=== PATIENT | male | born 1970 | race Caucasian/White ===

== ENCOUNTER 2019-02-09 12:11 | Inpatient (IN) | payer OTHER ==
[2019-02-09 14:07] VITALS: BMI 22.8
--- NOTE | 2019-02-09 14:58 | HP ---
"CIWA Score Nausea/Vomitin-No Nausea/No Vomiting Muscle Tremors: 3 Anxiety: 4-Mod. Anxious/Guarded Agitation: 7-Pacing/Thrashing Paroxysmal Sweats: 3 (Increased facial moisture) Orientation: 0-Oriented Tacttile Disturbances: 1-Very Mild Itch/Numbness Auditory Disturbances: 0-None Visual Disturbances: 0-None Headache: 0-None Present CIWA-Ar Total Score: 18 - Admission Criteria OAS Guidelines: Admission for Medically Managed Detox: Requires at least one of the followin. CIWA greater than 12 2. Seizures within the past 24 hours 3. Delirium tremens within the past 24 hours 4. Hallucinations within the past 24 hours 5. Acute intervention needed for co occurring medical disorder 6. Acute intervention needed for co occurring psychiatric disorder 7. Severe withdrawal that cannot be handled at a lower level of care (continued vomiting, continued diarrhea, abnormal vital signs) requiring intravenous medication and/or fluids 8. Patient presents the following: CIWA greater than 12 Admission Criteria Met: Admission criteria met Admission ROS [facility] - [facility] Chief Complaint: Here for detox. Allergies/Adverse Reactions: Allergies Allergy/AdvReac Type Severity Reaction Status Date / Time haloperidol [From Haldol] Allergy Severe Verified 02/09/19 13:59 risperidone [From Risperdal] Allergy Severe Verified 02/09/19 13:59 banana Allergy Intermediate Hives Verified 02/09/19 13:59 strawberry Allergy Intermediate Itching Verified 02/09/19 13:59 History of Present Illness: 48 yo presents w/ withdrawal symptoms seeking alcohol detox. Hx overdoses - last overdose 2017; Seizure 2018; Blackouts. Heroin use began at age 24. Current using 6 bags/day while on methadone. Nasal. H.E.L.P. MMTP. Currently on Methadone 80 mg daily. Alcohol use began at age 15. Currently drinks 2 +pints/day. Has been drinking current amount x 6 months. Nicotine use began at age 19. Current use 5 cig/day. PMHx: Asthma - last tim2 05/2018; MHHx: Sadness. Last saw Psychiatrist in June 2018. Denies thoughts of harming self or others. SHx: Domiciled. Unemployed. Denies legal issues. Patient Name: Parker Moss Date: 1970 Address: [address] [place] [id number] Sex: Male Rx Written Rx Dispensed Drug Quantity Days Supply Prescriber Name 04/09/2018 04/09/2018 clonazepam 0.5 mg tablet 14 14 Liam Hernandez MD Search Terms: Parker Moss, 1970 Search Date: 02/09/2019 03:23:20 PM States Searched: [place], [place], [place], [place], [place], [place], [place], [place] The Drug Utilization Report below displays the controlled substance prescriptions, if any, that were dispensed in the indicated state(s). The information displayed on this report is compiled from requests submitted to other states' PMPs, and accurately reflects the information as returned by them. Blank nunn indicate data not provided by other state. This report was requested by: Guerda Alexandre | Reference #: [id number] There are no results for the search terms that you entered. Exam Limitations: No Limitations - Ebola screening Have you traveled outside of the country in the last 21 days: No (N) Have you had contact with anyone from an Ebola affected area: No Have you been sick,other than usual withdrawal symptoms: No Do you have a fever: No - Review of Systems Constitutional: Changes in sleep (Difficulty falling and staying asleep), Unintentional Wgt. Loss EENT: reports: Nose Congestion Respiratory: reports: No Symptoms reported Cardiac: reports: No Symptoms Reported GI: reports: No Symptoms Reported : reports: No Symptoms Reported Musculoskeletal: reports: Back Pain (Chronic intermittent (L) lower back. Pain triggers by withdrawal.) Integumentary: reports: No Symptoms Reported Neuro: reports: Numbness (In fingers both hands and feet) Endocrine: reports: Increased Thirst Hematology: reports: No Symptoms Reported Psychiatric: reports: Orientated x3, Agitated, Anxious, Depressed (Sadness. Denies thoughts of harming self or others) Patient History - PPD History Previous Implant?: Yes Documented Results: Negative w/o proof Implanted On Prior [facility] Admission?: Yes PPD to be Administered?: Yes - Smoking Cessation Smoking history: Current every day smoker Have you smoked in the past 12 months: Yes Aproximately how many cigarettes per day: 5 Hx Chewing Tobacco Use: No Initiated information on smoking cessation: Yes 'Breaking Loose' booklet given: 02/09/19 - Substance & Tx. History Hx Alcohol Use: Yes Hx Substance Use: Yes Substance Use Type: Alcohol, Cocaine, Heroin Hx Substance Use Treatment: Yes (detox, rehab, Currently on a MMTP) - Substances abused Alcohol Substance route: Oral Frequency: Daily Amount used: VODKA- 2PINTS/ BEER- 6PK(12OZ Age of first use: 15 Date of last use: 02/09/19 Heroin Substance route: Injection Frequency: 3-6 times per week Amount used: 6BAGS Age of first use: 24 Date of last use: 02/09/19 Cocaine Substance route: Injection Frequency: Daily Amount used: $40 Age of first use: 17 Date of last use: 02/09/19 Admission Physical Exam [facility] - Vital Signs Vital Signs: Vital Signs - 24 hr 02/09/19 14:00 Temperature 96.6 F L Pulse Rate 48 L Respiratory 18 Rate Blood Pressure 168/54 L - Physical General Appearance: Yes: Nourished, Moderate Distress, Tremorous, Irritable, Sweating, Anxious HEENTM: Yes: EOMI, Hearing grossly Normal, Normocephalic, Normal Voice, ZOYA ( Pupils = 2 mm), Pharynx Normal Respiratory: Yes: Lungs Clear, Normal Breath Sounds, No Respiratory Distress Neck: Yes: No masses,lesions,Nodules, Supple Breast: Yes: Breast Exam Deferred Cardiology: Yes: Regular Rhythm, S1, S2, Bradycardia (HR: 54) Abdominal: Yes: Non Tender, Flat, Soft, Increased Bowel Sounds Genitourinary: Yes: Within Normal Limits Back: Yes: Normal Inspection Musculoskeletal: Yes: full range of Motion, Gait Steady Extremities: Yes: Normal Capillary Refill, Tremors Neurological: Yes: document reviewer II-XII NML intact, Fully Oriented, Alert, Motor Strength 5/5 Integumentary: Yes: Normal Color, Warm, Track Pabon (Old track pabon on arms) Lymphatic: Yes: Within Normal Limits - Diagnostic (1) Alcohol dependence with withdrawal, uncomplicated Current Visit: Yes Status: Acute (2) Opioid dependence on agonist therapy Current Visit: Yes Status: Acute (3) Cocaine dependence, uncomplicated Current Visit: Yes Status: Acute (4) Elevated blood pressure reading without diagnosis of hypertension Current Visit: Yes Status: Acute (5) Pruritic condition Current Visit: Yes Status: Acute (6) Tinea pedis Current Visit: Yes Status: Acute Cleared for Admission [facility] - Detox or Rehab [facility] Level of Care: Medically Managed Detox Regimen/Protocol: Zoyaium Claeared for Rehab Admission: No Breathalyzer - Breathalyzer Breathalyzer: 0 Urine Drug Screen - Test Device Lot number: [id number] Expiration date: 10/07/20 - Control Is test valid?: Yes - Results Drug screen NEGATIVE: No Urine drug screen results: ROSHAN-Cocaine, MOP-Opiates, MTD-Methadone Inpatient Rehab Admission - Rehab Decision to Admit Inpatient rehab admission?: No"
[2019-02-09] MEDS ORDERED: MAG HYDROX/AL HYDROX/SIMETH 30 ML UNIT-DOSE CUP PO PRN (15:31)
[2019-02-09] MEDS ORDERED: MELATONIN 5 MG TABLETS PO PRN (15:31)
[2019-02-09] MEDS ORDERED: MAGNESIUM HYDROX 2400MG/30ML ORAL SUSPENSION 30 ML CUP PO PRN (15:31)
[2019-02-09] MEDS ORDERED: NICOTINE POLACRILEX 2 MG GUM BUC PRN (15:31)
[2019-02-09] MEDS ORDERED: MAGNESIUM CITRATE 300 ML BOTTLE PO PRN (15:31)
[2019-02-09] MEDS ORDERED: chlordiazePOXIDE HCL 25 MG CAPSULE PO PRN (15:31)
[2019-02-09] MEDS ORDERED: MENTHOL/PHENOL 1 EACH UD MM PRN (15:31)
[2019-02-09] MEDS ORDERED: BISMUTH SUBSALICYLATE 524 MG/30 ML UD PO PRN (15:31)
[2019-02-09] MEDS ORDERED: ACETAMINOPHEN 325 MG TABLET (FP) PO PRN ×2 (15:31)
[2019-02-09] MEDS ORDERED: VITAMINS A AND D TOPICAL OINTMENT 60 GM TUBE TP PRN (15:35)
[2019-02-09] MEDS: chlordiazePOXIDE HCL 25 MG CAPSULE PO SCH ×2 (18:14→23:16)
[2019-02-09] MEDS: THIAMINE HCL 100 MG TABLET (FP) PO SCH (23:16)
[2019-02-10] MEDS ORDERED: METHADONE HCL 40 MG DISPERSABLE TABLET PO ONE (06:00)
[2019-02-10] MEDS ORDERED: METHADONE HCL 10 MG TABLET PO ONE (06:00)
[2019-02-10] MEDS: chlordiazePOXIDE HCL 25 MG CAPSULE PO SCH ×4 (10:35→22:02)
[2019-02-10] MEDS: PRENATAL VITAMINS W/ FOLIC ACID TABLET (FP) PO SCH (10:37)
--- NOTE | 2019-02-10 11:10 | PN ---
S CIWA - CIWA Score Nausea/Vomitin-Mild Nausea/No Vomiting Muscle Tremors: 4-Moderate,w/Arms Extend Anxiety: 4-Mod. Anxious/Guarded Agitation: 4-Moderately Restless Paroxysmal Sweats: 3 Orientation: 0-Oriented Tacttile Disturbances: 0-None Auditory Disturbances: 0-None Visual Disturbances: 0-None Headache: 0-None Present CIWA-Ar Total Score: 16 [facility] Progress Note (SOAP) Subjective: "Feels sick lots of withdrawal sxs because didn't get my methadone at 6am because I was sleeping but wants it now, I bring my bottle in yesterday." Body stiffness, anxious, back pain Objective: 02/10/19 11:08 Last Vital Signs Temp Pulse Resp BP Pulse Ox 96.4 F L 77 18 115/76 02/10/19 09:27 02/10/19 09:27 02/10/19 09:27 02/10/19 09:27 Admission labs not done (patient refused, reordered in AM) Assessment: 02/10/19 11:11 Withdrawal sxs Plan: Continue detox Encouraged PO water intake Admission labs reordered in AM: CBC, CMP, RPR and UA
[2019-02-10] MEDS ORDERED: FLU VACCINE QUAD 60 MCG/0.5 ML (MDV 19-20) IM ONE (12:00)
[2019-02-10] MEDS: THIAMINE HCL 100 MG TABLET (FP) PO SCH (22:01)
[2019-02-11] MEDS: chlordiazePOXIDE HCL 25 MG CAPSULE PO SCH ×4 (05:37→22:14)
--- NOTE | 2019-02-11 09:51 | PN ---
S CIWA - CIWA Score Nausea/Vomitin-Mild Nausea/No Vomiting Muscle Tremors: 2 Anxiety: 2 Agitation: 2 Paroxysmal Sweats: No Perspiration Orientation: 0-Oriented Tacttile Disturbances: 1-Very Mild Itch/Numbness Auditory Disturbances: 0-None Visual Disturbances: 0-None Headache: 1-Very Mild CIWA-Ar Total Score: 9 [facility] Progress Note (SOAP) Subjective: alert,irritable,anxious,interrupted sleep,tremor Objective: 02/11/19 09:49 Vital Signs Temperature 97.5 F L 02/11/19 09:14 Pulse Rate 70 02/11/19 09:14 Respiratory Rate 16 02/11/19 09:14 Blood Pressure 129/78 02/11/19 09:14 O2 Sat by Pulse Oximetry (%) 02/11/19 09:50 labs pending Assessment: 02/11/19 09:50 withdrawal symptom Plan: continue detox librium regimen
[2019-02-11 09:57] LABS: BASO % 0.7 % (0-2.0); EOS % 4.3 % (0-4.5); HEMATOCRIT 41.9 % (35.4-49); HEMOGLOBIN 14.1 GM/dL (11.7-16.9); LYMPH % 35.7 % (8-40); MCH 28.9 pg (25.7-33.7); MCHC 33.6 g/dl (32.0-35.9); MEAN PLT VOLUME 9.4 fl (7.5-11.1); MONO % 7.8 % (3.8-10.2); NEUT % 51.5 % (42.8-82.8); PLATELET COUNT 164 K/MM3 (134-434); RBC 4.87 M/mm3 (4.00-5.60); RDW 13.9 % (11.9-15.9); WHITE BLOOD COUNT 5.7 K/mm3 (4.0-10.0)
[2019-02-11 10:04] LABS: BILIRUBIN,TOTAL 0.2 mg/dL (0.2-1); BLOOD UREA NITROGEN 18.1 mg/dL (7-18); CALCIUM 8.2 mg/dL (8.5-10.1); CREATININE 0.8 mg/dL (0.55-1.3); TOT PROT 5.6 g/dl (6.4-8.2)
--- NOTE | 2019-02-11 11:04 | EKG ---
Test Reason : Blood Pressure : / mmHG Vent. Rate : 050 BPM Atrial Rate : 050 BPM P-R Int : 112 ms QRS Dur : 096 ms QT Int : 546 ms P-R-T Axes : 027 099 093 degrees QTc Int : 497 ms SINUS BRADYCARDIA WITH SINUS ARRHYTHMIA T WAVE ABNORMALITY, CONSIDER ANTERIOR ISCHEMIA PROLONGED QT ABNORMAL ECG NO PREVIOUS ECGS AVAILABLE Confirmed by HEBER NATION MD ([id number]) on 02/11/2019 11:04:08 AM Referred By: Confirmed By:HEBER NATION MD
[2019-02-11] MEDS: PRENATAL VITAMINS W/ FOLIC ACID TABLET (FP) PO SCH (11:09)
[2019-02-11] MEDS: METHADONE HCL 40 MG DISPERSABLE TABLET PO SCH (11:10)
[2019-02-11] MEDS: METHOCARBAMOL 500 MG TABLET PO PRN (19:41)
[2019-02-11] MEDS: THIAMINE HCL 100 MG TABLET (FP) PO SCH (22:14)
[2019-02-11] MEDS: IBUPROFEN 400 MG TABLET (FP) PO PRN (23:48)
[2019-02-12] MEDS ORDERED: chlordiazePOXIDE HCL 10 MG CAPSULE PO PRN
[2019-02-12] MEDS: chlordiazePOXIDE HCL 10 MG CAPSULE PO SCH ×4 (05:31→22:15)
[2019-02-12 09:34] LABS: PH,URINE 5.5 (5.0-8.0); URINE APPEARANCE CLEAR; URINE BILIRUBIN NEGATIVE (NEGATIVE); URINE COLOR YELLOW; URINE GLUCOSE (UA) NEGATIVE (NEGATIVE); URINE KETONE NEGATIVE (NEGATIVE); URINE LEUK ESTERASE NEGATIVE (NEGATIVE); URINE NITRITE NEGATIVE (NEGATIVE); URINE PROTEIN NEGATIVE (NEGATIVE); URINE UROBILINOGEN 0.2 mg/dL (0.2-1.0)
[2019-02-12] MEDS: PRENATAL VITAMINS W/ FOLIC ACID TABLET (FP) PO SCH (10:17)
[2019-02-12] MEDS: METHADONE HCL 40 MG DISPERSABLE TABLET PO SCH (10:18)
--- NOTE | 2019-02-12 11:19 | PN ---
S CIWA - CIWA Score Nausea/Vomitin-Mild Nausea/No Vomiting Muscle Tremors: 2 Anxiety: 2 Agitation: 2 Paroxysmal Sweats: No Perspiration Orientation: 0-Oriented Tacttile Disturbances: 1-Very Mild Itch/Numbness Auditory Disturbances: 0-None Visual Disturbances: 0-None Headache: 2-Mild CIWA-Ar Total Score: 10 BHS Progress Note (SOAP) Subjective: alert,irritable,anxious,interrupted sleep,pain in the body Objective: 02/12/19 11:18 Vital Signs Temperature 97.8 F 02/12/19 09:15 Pulse Rate 70 02/12/19 09:15 Respiratory Rate 18 02/12/19 09:15 Blood Pressure 152/63 02/12/19 09:15 O2 Sat by Pulse Oximetry (%) Assessment: 02/12/19 11:18 withdrawal symptom Plan: continue detox,librium regimen
--- NOTE | 2019-02-12 15:56 | PN ---
[facility] Progress Note Note: patient involved in verbal altercation with other client,securities present, deepti o and m supervisor present,counselor,grisel,conference called, all agree to contract with the patient,patient agreed and will comply with unit rule close monitoring
[2019-02-12] MEDS: THIAMINE HCL 100 MG TABLET (FP) PO SCH (22:14)
[2019-02-13] MEDS: chlordiazePOXIDE HCL 10 MG CAPSULE PO SCH ×2 (05:34→18:15)
--- NOTE | 2019-02-13 09:56 | PN ---
[facility] CIWA - CIWA Score Nausea/Vomitin-Mild Nausea/No Vomiting Muscle Tremors: 1-None Visible, but [place] Anxiety: 2 Agitation: 2 Paroxysmal Sweats: No Perspiration Orientation: 0-Oriented Tacttile Disturbances: 0-None Auditory Disturbances: 0-None Visual Disturbances: 0-None Headache: 1-Very Mild CIWA-Ar Total Score: 7 S Progress Note (SOAP) Subjective: alert,irritable,anxious,interrupted sleep Objective: 02/13/19 09:55 Vital Signs Temperature 97.8 F 02/13/19 09:13 Pulse Rate 68 02/13/19 09:13 Respiratory Rate 18 02/13/19 09:13 Blood Pressure 130/71 02/13/19 09:13 O2 Sat by Pulse Oximetry (%) Assessment: 02/13/19 09:55 withdrawal symptom Plan: continue detox,discharge in am
[2019-02-13] MEDS: PRENATAL VITAMINS W/ FOLIC ACID TABLET (FP) PO SCH (10:53)
[2019-02-13] MEDS: METHADONE HCL 40 MG DISPERSABLE TABLET PO SCH (10:53)
[2019-02-13] MEDS: IBUPROFEN 400 MG TABLET (FP) PO PRN (14:17)
[2019-02-13] MEDS: THIAMINE HCL 100 MG TABLET (FP) PO SCH (22:19)
[2019-02-13] MEDS: TOLNAFTATE 1% CREAM 15 GM TUBE TP SCH (22:21)
[2019-02-14] MEDS: IBUPROFEN 400 MG TABLET (FP) PO PRN (01:19)
[2019-02-14] MEDS: METHOCARBAMOL 500 MG TABLET PO PRN (01:19)
[2019-02-14] MEDS ORDERED: chlordiazePOXIDE HCL 10 MG CAPSULE PO ONE (05:00)
--- NOTE | 2019-02-14 08:53 | DS ---
[facility] Detox Discharge Summary Admission Date: 02/09/19 Discharge Date: 02/14/19 - History Present History: Alcohol Dependence, Cocaine Dependence - Physical Exam Results Vital Signs: Vital Signs Temperature 97.9 F 02/13/19 20:58 Pulse Rate 50 L 02/13/19 20:58 Respiratory Rate 18 02/14/19 00:30 Blood Pressure 104/65 02/13/19 20:58 O2 Sat by Pulse Oximetry (%) Pertinent Admission Physical Exam Findings: pt arrived in withdrawals Vital Signs Temperature 97.9 F 02/13/19 20:58 Pulse Rate 50 L 02/13/19 20:58 Respiratory Rate 18 02/14/19 00:30 Blood Pressure 104/65 02/13/19 20:58 O2 Sat by Pulse Oximetry (%) Laboratory Tests 02/11/19 02/11/19 02/11/19 08:00 08:00 08:00 WBC 5.7 RBC 4.87 Hgb 14.1 Hct 41.9 MCV 86.0 MCH 28.9 MCHC 33.6 RDW 13.9 Plt Count 164 MPV 9.4 Absolute Neuts (auto) 3.0 Neutrophils % 51.5 Lymphocytes % 35.7 Monocytes % 7.8 Eosinophils % 4.3 Basophils % 0.7 Nucleated RBC % 0 Sodium 140 Potassium 4.0 Chloride 109 H Carbon Dioxide 28 Anion Gap 4 L BUN 18.1 H Creatinine 0.8 Est GFR (CKD-EPI)AfAm 123.29 Est GFR (CKD-EPI)NonAf 106.38 Random Glucose 104 Calcium 8.2 L Total Bilirubin 0.2 AST 15 ALT 24 Alkaline Phosphatase 102 Total Protein 5.6 L Albumin 3.0 L Urine Color Urine Appearance Urine pH Ur Specific [place] Urine Protein Urine Glucose (UA) Urine Ketones Urine Blood Urine Nitrite Urine Bilirubin Urine Urobilinogen Ur Leukocyte Esterase RPR Titer Nonreactive 02/12/19 08:00 WBC RBC Hgb Hct MCV MCH MCHC RDW Plt Count MPV Absolute Neuts (auto) Neutrophils % Lymphocytes % Monocytes % Eosinophils % Basophils % Nucleated RBC % Sodium Potassium Chloride Carbon Dioxide Anion Gap BUN Creatinine Est GFR (CKD-EPI)AfAm Est GFR (CKD-EPI)NonAf Random Glucose Calcium Total Bilirubin AST ALT Alkaline Phosphatase Total Protein Albumin Urine Color Yellow Urine Appearance Clear Urine pH 5.5 Ur Specific [place] 1.029 Urine Protein Negative Urine Glucose (UA) Negative Urine Ketones Negative Urine Blood Negative Urine Nitrite Negative Urine Bilirubin Negative Urine Urobilinogen 0.2 Ur Leukocyte Esterase Negative RPR Titer today pt is aaox3 ambulating no acute distress no s/s of withdrawals - Treatment Hospital Course: Detox Protocol Followed, Detoxed Safely, Responded well, Discharged Condition Good, Rehab Referral Accepted Patient has Accepted a Rehab Referral to: pt referred to inpatient rehab; [facility] - Medication Discharge Medications: Ambulatory Orders Methadone [Dolophine -] 80 mg PO DAILY 02/09/19 - Diagnosis (1) Alcohol dependence with withdrawal, uncomplicated Current Visit: Yes Status: Chronic (2) Cocaine dependence, uncomplicated Current Visit: Yes Status: Chronic (3) Elevated blood pressure reading without diagnosis of hypertension Current Visit: Yes Status: Acute - AMA Did Patient Leave Against Medical Advice: No
[2019-02-14] MEDS: METHADONE HCL 40 MG DISPERSABLE TABLET PO SCH (09:42)
[2019-02-14] MEDS: PRENATAL VITAMINS W/ FOLIC ACID TABLET (FP) PO SCH (09:43)
[2019-02-14] MEDS: TOLNAFTATE 1% CREAM 15 GM TUBE TP SCH (09:43)
[2019-02-14 10:03] VITALS: BP 99/67; PULSE 94; TEMP 99.9
== END 2019-02-14 11:32 | disposition other institution (70) | DRG 773 ==
LOC: YASAS 12:11 → Y6N 15:52
PROVIDERS: ADMIT Allergy & Immunology; ATTEND Allergy & Immunology
PROC: HZ2ZZZZ Detoxification Services for Substance Abuse Treatment (ICD-10-PCS; principal; 2019-02-09)
DX: F10.230 Alcohol dependence with withdrawal, uncomplicated (principal); F11.20 Opioid dependence, uncomplicated; F14.20 Cocaine dependence, uncomplicated; F17.210 Nicotine dependence, cigarettes, uncomplicated; B35.3 Tinea pedis; L29.8 Other pruritus; M54.5 Low back pain; G89.29 Other chronic pain; R03.0 Elevated blood-pressure reading, without diagnosis of hypertension; Z88.8 Allergy status to other drugs, medicaments and biological substances; Z91.018 Allergy to other foods; Z59.0 Homelessness
CPT/HCPCS: 36415; 80053; 81003; 85025; 86593; 93005; 93010

== ENCOUNTER 2019-02-14 11:38 | Inpatient (IN) | payer OTHER ==
[2019-02-14] MEDS ORDERED: MAGNESIUM HYDROX 2400MG/30ML ORAL SUSPENSION 30 ML CUP PO PRN (11:56)
[2019-02-14] MEDS ORDERED: MENTHOL/PHENOL 1 EACH UD MM PRN (11:56)
[2019-02-14] MEDS ORDERED: ACETAMINOPHEN 325 MG TABLET (FP) PO PRN (11:56)
[2019-02-14] MEDS ORDERED: MAG HYDROX/AL HYDROX/SIMETH 30 ML UNIT-DOSE CUP PO PRN (11:56)
[2019-02-14] MEDS ORDERED: P-EPHED 60MG/TRIPROLIDI 2.5MG TABLET PO PRN (11:56)
[2019-02-14] MEDS ORDERED: guaiFENesin 200 MG/10 ML 10 ML UNIT-DOSE CUPS PO PRN (11:56)
[2019-02-14] MEDS ORDERED: LOPERAMIDE HCL 2 MG CAPSULE PO PRN (11:56)
[2019-02-14] MEDS ORDERED: MAGNESIUM CITRATE 300 ML BOTTLE PO PRN (11:56)
[2019-02-14] MEDS ORDERED: IBUPROFEN 400 MG TABLET (FP) PO PRN (11:56)
--- NOTE | 2019-02-14 11:58 | HP ---
[facility] Rehab Assess/Revision - Admission History Admitted to Rehab from: [facility] Date of Admission to Rehab: 02/14/19 - Findings Detox History & Physical reviewed: Yes Concur with findings: Yes Inpatient Rehab Admission - Rehab Decision to Admit Inpatient rehab admission?: Yes - Initial Determination Are CD services needed?: Yes Free of communicable disease: Yes Not in need of hospitalization: Yes - Rehab Admission Criteria Previous failed treatment: Yes Poor recovery environment: Yes Comorbidities: Yes Lacks judgement: Yes Patient is meeting Inpatient Rehab admission criteria:: Yes
[2019-02-14] MEDS ORDERED: PT OWN MED DRAWER 7, Y5N ONE (16:45)
[2019-02-14] MEDS: MELATONIN 5 MG TABLETS PO PRN (21:19)
[2019-02-14] MEDS: THIAMINE HCL 100 MG TABLET (FP) PO SCH (21:19)
[2019-02-15] MEDS: METHADONE HCL 40 MG DISPERSABLE TABLET PO SCH (06:38)
[2019-02-15] MEDS: PRENATAL VITAMINS W/ FOLIC ACID TABLET (FP) PO SCH (10:37)
[2019-02-15] MEDS ORDERED: PNEUMOCOCCAL 23 VACCINE 0.5 ML VIAL IM ONE (12:00)
[2019-02-15] MEDS ORDERED: FLU VACCINE QUAD 60 MCG/0.5 ML (MDV 19-20) IM ONE (12:00)
[2019-02-15] MEDS ORDERED: PNEUMOC 13-VAL CONJ-DIP CRM/PF 0.5 ML DISP.SYRIN IM ONE (12:00)
[2019-02-15] MEDS: CYCLOBENZAPRINE HCL 5 MG TABLET PO SCH ×2 (16:42→21:31)
[2019-02-15] MEDS: TOLNAFTATE 1% CREAM 15 GM TUBE TP SCH (21:31)
[2019-02-15] MEDS: MELATONIN 5 MG TABLETS PO PRN (21:31)
[2019-02-15] MEDS: THIAMINE HCL 100 MG TABLET (FP) PO SCH (21:32)
[2019-02-16] MEDS: CYCLOBENZAPRINE HCL 5 MG TABLET PO SCH ×3 (06:31→22:09)
[2019-02-16] MEDS: METHADONE HCL 40 MG DISPERSABLE TABLET PO SCH (06:31)
[2019-02-16] MEDS: PRENATAL VITAMINS W/ FOLIC ACID TABLET (FP) PO SCH (10:25)
[2019-02-16] MEDS: TOLNAFTATE 1% CREAM 15 GM TUBE TP SCH ×2 (10:25→22:09)
[2019-02-16] MEDS ORDERED: FLU VACC QS2019-20(6MOS UP)/PF 60 MCG/0.5 ML SYRINGE IM ONE (12:00)
[2019-02-16] MEDS ORDERED: PNEUMOCOCCAL 23 VACCINE 0.5 ML VIAL IM ONE (12:00)
[2019-02-16] MEDS ORDERED: FLU VACCINE QUAD 60 MCG/0.5 ML (MDV 19-20) IM ONE (12:44)
[2019-02-16] MEDS: THIAMINE HCL 100 MG TABLET (FP) PO SCH (22:09)
[2019-02-16] MEDS ORDERED: PT OWN MED DRAWER 7, Y5N ONE (22:10)
[2019-02-17] MEDS: METHADONE HCL 40 MG DISPERSABLE TABLET PO SCH (06:07)
[2019-02-17] MEDS: CYCLOBENZAPRINE HCL 5 MG TABLET PO SCH ×3 (06:07→21:45)
[2019-02-17] MEDS: PRENATAL VITAMINS W/ FOLIC ACID TABLET (FP) PO SCH (10:30)
[2019-02-17] MEDS: TOLNAFTATE 1% CREAM 15 GM TUBE TP SCH ×2 (10:30→21:45)
[2019-02-17] MEDS: THIAMINE HCL 100 MG TABLET (FP) PO SCH (21:45)
[2019-02-17] MEDS ORDERED: PT OWN MED DRAWER 7, Y5N ONE (21:59)
[2019-02-18] MEDS: CYCLOBENZAPRINE HCL 5 MG TABLET PO SCH ×3 (06:33→21:18)
[2019-02-18] MEDS: METHADONE HCL 40 MG DISPERSABLE TABLET PO SCH (06:33)
[2019-02-18] MEDS: PRENATAL VITAMINS W/ FOLIC ACID TABLET (FP) PO SCH (10:32)
[2019-02-18] MEDS: TOLNAFTATE 1% CREAM 15 GM TUBE TP SCH ×2 (14:26→21:18)
[2019-02-18] MEDS: MELATONIN 5 MG TABLETS PO PRN (21:18)
[2019-02-18] MEDS: THIAMINE HCL 100 MG TABLET (FP) PO SCH (21:18)
[2019-02-19] MEDS: CYCLOBENZAPRINE HCL 5 MG TABLET PO SCH ×3 (05:52→21:41)
[2019-02-19] MEDS: METHADONE HCL 40 MG DISPERSABLE TABLET PO SCH (05:53)
[2019-02-19] MEDS: PRENATAL VITAMINS W/ FOLIC ACID TABLET (FP) PO SCH (09:31)
[2019-02-19] MEDS: TOLNAFTATE 1% CREAM 15 GM TUBE TP SCH ×2 (09:32→21:41)
[2019-02-19] MEDS: MELATONIN 5 MG TABLETS PO PRN (21:41)
[2019-02-19] MEDS: THIAMINE HCL 100 MG TABLET (FP) PO SCH (21:41)
[2019-02-20] MEDS: METHADONE HCL 40 MG DISPERSABLE TABLET PO SCH (05:37)
[2019-02-20] MEDS: CYCLOBENZAPRINE HCL 5 MG TABLET PO SCH ×3 (05:37→21:18)
[2019-02-20] MEDS ORDERED: ASPIRIN 81 MG CHEWABLE TABLETS PO ONE (06:22)
[2019-02-20 06:23] VITALS: TEMP 98.2
--- NOTE | 2019-02-20 06:27 | PN ---
[facility] Progress Note Note: Patient complains of chest pain. He reports that he has had similar pain in the past. Vital Signs Temperature 98.2 F 02/20/19 06:23 Pulse Rate 62 02/20/19 06:23 Respiratory Rate 18 02/20/19 06:23 Blood Pressure 111/63 02/20/19 06:23 O2 Sat by Pulse Oximetry (%) Action: Aspirin 81mg tablet 1 tablet oral stat EKG stat
[2019-02-20] MEDS: PRENATAL VITAMINS W/ FOLIC ACID TABLET (FP) PO SCH (09:36)
[2019-02-20] MEDS: TOLNAFTATE 1% CREAM 15 GM TUBE TP SCH ×2 (09:36→21:18)
[2019-02-20] MEDS: MELATONIN 5 MG TABLETS PO PRN (21:18)
[2019-02-20] MEDS: THIAMINE HCL 100 MG TABLET (FP) PO SCH (21:18)
[2019-02-21] MEDS: CYCLOBENZAPRINE HCL 5 MG TABLET PO SCH (05:45)
[2019-02-21] MEDS ORDERED: METHADONE HCL 40 MG DISPERSABLE TABLET PO SCH (06:00)
[2019-02-21 07:00] VITALS: BP 131/68; PULSE 61
--- NOTE | 2019-02-21 08:39 | DS ---
[facility] Rehab Discharge Summary - [facility] Rehab Discharge Summary Admission Date: 02/14/19 Discharge Date: 02/21/19 - History Present History: Alcohol dependence, Cocaine dependence, MMTP Pertinent Past History: Hx overdoses - last overdose 2016; Seizure 2018; Blackouts. Heroin use began at age 24. Current using 6 bags/day while on methadone. Nasal. H.E.L.P. MMTP. Currently on Methadone 80 mg daily. Alcohol use began at age 15. Currently drinks 2 +pints/day. Has been drinking current amount x 6 months. Nicotine use began at age 19. Current use 5 cig/day. PMHx: Asthma - last tim2 05/2018; MHHx: Sadness. Last saw Psychiatrist in June 2018. Denies thoughts of harming self or others. SHx: Domiciled. Unemployed. Denies legal issues. - Discharge Physical Exam Vital Signs: Vital Signs Temperature 98.2 F 02/21/19 06:59 Pulse Rate 61 02/21/19 06:59 Respiratory Rate 18 02/21/19 06:59 Blood Pressure 131/68 02/21/19 06:59 O2 Sat by Pulse Oximetry (%) Pertinent Admission Physical Exam Findings: Physical General Appearance: no apparent distress HEENTM: Normocephalic, Respiratory:Lungs Clear, Neck: Supple Cardiology: S1, S2, Abdominal: Non Tender, Flat, Soft,+Bowel Sounds Musculoskeletal:Full range of Motion, Gait Steady Neurological:intelligence consultant II-XII NML intact, - Treatment Discharge Condition: Outpatient referral accepted (Pt will go to [facility]. Medically stable for discharge.) Hospital Course: patient attended groups. Had 1:1 meetings with counselor. Patient was adherent to the treatment plan and medication regimen. Mr. Moss had no acute or emergent medical issues while in rehab. - Medication Discharge Medications: Ambulatory Orders Methadone [Dolophine -] 80 mg PO DAILY 02/09/19 - Medication-Assisted Treatment (MAT) Medication-Assisted Treatment (MAT): Yes MAT Follow-up Referral: MMTP - Discharge Instructions Diet, activity, other medical instructions: Diet: as tolerated Activity: as tolerated Other medical instructions: Please follow up with aftercare referral to [facility]. - Diagnosis (1) Alcohol dependence with withdrawal, uncomplicated Current Visit: No Status: Chronic (2) Cocaine dependence, uncomplicated Current Visit: No Status: Chronic - AMA Did Patient Leave Against Medical Advice: No
--- NOTE | 2019-02-21 12:43 | EKG ---
Test Reason : Blood Pressure : / mmHG Vent. Rate : 058 BPM Atrial Rate : 058 BPM P-R Int : 128 ms QRS Dur : 102 ms QT Int : 454 ms P-R-T Axes : 069 097 018 degrees QTc Int : 445 ms SINUS BRADYCARDIA POSSIBLE LEFT ATRIAL ENLARGEMENT RIGHTWARD AXIS BORDERLINE ECG WHEN COMPARED WITH ECG OF 09-FEB-2019 16:00, NONSPECIFIC T WAVE ABNORMALITY NOW EVIDENT IN INFERIOR LEADS T WAVE INVERSION NO LONGER EVIDENT IN ANTERIOR LEADS QT HAS SHORTENED Confirmed by SELIN JONES MD ([id number]) on 02/21/2019 12:43:11 PM Referred By: Confirmed By:SELIN JONES MD
== END 2019-02-21 09:05 | disposition home or self-care (01) | DRG 772 ==
LOC: YASAS 11:38 → Y3W 11:39
PROVIDERS: ADMIT Neuromusculoskeletal Medicine & OMM; ATTEND Neuromusculoskeletal Medicine & OMM
PROC: HZ42ZZZ Group Counseling for Substance Abuse Treatment, Cognitive-Behavioral (ICD-10-PCS; principal; 2019-02-14)
DX: F10.20 Alcohol dependence, uncomplicated (principal); F11.20 Opioid dependence, uncomplicated; F14.20 Cocaine dependence, uncomplicated; F17.210 Nicotine dependence, cigarettes, uncomplicated; R07.9 Chest pain, unspecified; Z88.8 Allergy status to other drugs, medicaments and biological substances; Z91.018 Allergy to other foods; Z59.0 Homelessness
CPT/HCPCS: 36415; 87389; 90686; 90732; 93005; 93010; G0009; Q2036

== ENCOUNTER 2023-03-16 14:59 | Inpatient (IN) | payer OTHER ==
[2023-03-16 15:51] VITALS: BMI 24.3
[2023-03-16] MEDS ORDERED: NICOTINE POLACRILEX 2 MG GUM BUC PRN (16:55)
[2023-03-16] MEDS ORDERED: LOPERAMIDE HCL 2 MG CAPSULE PO PRN (16:55)
[2023-03-16] MEDS ORDERED: BENZOCAINE/MENTHOL (CHLORASEPTIC ) LOZENGE MM PRN (16:55)
[2023-03-16] MEDS ORDERED: MAG HYDROX/AL HYDROX/SIMETH 30 ML UNIT-DOSE CUP PO PRN (16:55)
[2023-03-16] MEDS ORDERED: guaiFENesin 600 MG TABLET.ER (FP) PO PRN (16:55)
[2023-03-16] MEDS ORDERED: IBUPROFEN 400 MG TABLET (FP) PO PRN (16:55)
[2023-03-16] MEDS ORDERED: POLYETHYLENE GLYCOL (HEALTHYLAX) 3350 17 GM PACKET PO PRN (16:55)
[2023-03-16] MEDS ORDERED: MAGNESIUM HYDROX 2400MG/30ML ORAL SUSPENSION 30 ML CUP PO PRN (16:55)
[2023-03-16] MEDS ORDERED: NALOXONE HCL 0.4 MG/ML VIAL IM PRN (16:55)
[2023-03-16] MEDS ORDERED: NALOXONE HCL (KLOXXADO) 8 MG SPRAY NS PRN (16:55)
[2023-03-16] MEDS ORDERED: COLLOIDAL OATMEAL 1 BAR EACH TP PRN (16:55)
[2023-03-16] MEDS ORDERED: BENZONATATE 200 MG CAPSULE PO PRN (16:55)
[2023-03-16] MEDS ORDERED: ACETAMINOPHEN 325 MG TABLET (FP) PO PRN (16:55)
[2023-03-16] MEDS ORDERED: hydrOXYzine PAMOATE 25 MG CAPSULE (FP) PO PRN (16:55)
[2023-03-16] MEDS ORDERED: TUBERCULIN PPD 5 TU/0.1ML SYRINGE (IN PATIENT USE ONLY) ID ONE (20:58)
[2023-03-16] MEDS: MELATONIN 5 MG TABLETS PO SCH (21:26)
[2023-03-16] MEDS: THIAMINE HCL 100 MG TABLET (FP) PO SCH (21:26)
[2023-03-16] MEDS ORDERED: TUBERCULIN PPD 5 TU/0.1ML VIAL ID ONE (21:30)
[2023-03-17] MEDS: PRENATAL VITAMINS W/ FOLIC ACID TABLET (FP) PO SCH (09:02)
[2023-03-17] MEDS ORDERED: methaDONE HCL 10 MG TABLET PO ONE (10:00)
[2023-03-17] MEDS ORDERED: methaDONE 40 MG, methaDONE 20 MG PO ONE (10:00)
[2023-03-17 10:29] LABS: CHLORIDE 105 mmol/L (98-107); SODIUM 139 mmol/L (136-145)
[2023-03-17 10:33] LABS: HEMATOCRIT 42.5 % (35.4-49); HEMOGLOBIN 14.1 GM/dL (11.7-16.9); MCH 28.8 pg (25.7-33.7); MCHC 33.2 g/dl (32.0-35.9); MEAN CELL VOLUME 86.6 fl (80-96); MEAN PLT VOLUME 8.9 fl (7.5-11.1); PLATELET COUNT 183 10^3/uL (134-434); RBC 4.91 M/mm3 (4.00-5.60); RDW 14.3 % (11.9-15.9); WHITE BLOOD COUNT 6.6 K/mm3 (4.0-10.0)
[2023-03-17 10:35] LABS: ALBUMIN 3.2 g/dl (3.4-5.0); ANION GAP 7 mmol/L (4-13); CALCIUM 8.6 mg/dL (8.5-10.1); CO2 28 mmol/L (21-32)
[2023-03-17 10:36] LABS: BLOOD UREA NITROGEN 16.9 mg/dL (7-18); GLUCOSE,RANDOM 142 mg/dL (74-106)
[2023-03-17 10:38] LABS: CREATININE 0.9 mg/dL (0.55-1.3); SGOT/AST 25 U/L (15-37); SGPT/ALT 30 U/L (13-61)
[2023-03-17 10:39] LABS: BILIRUBIN,TOTAL 0.7 mg/dL (0.2-1); TOT PROT 6.8 g/dl (6.4-8.2)
[2023-03-17 10:41] LABS: ALK PHOS 85 U/L (45-117)
[2023-03-17] MEDS: amLODIPine BESYLATE 10 MG TABLET (FP) PO SCH (18:31)
[2023-03-17] MEDS: GABAPENTIN 300 MG CAPSULE PO SCH (18:31)
[2023-03-17] MEDS: OLANZapine 5 MG TABLET PO SCH (21:07)
[2023-03-17] MEDS: THIAMINE HCL 100 MG TABLET (FP) PO SCH (21:08)
[2023-03-17] MEDS: MELATONIN 5 MG TABLETS PO SCH (21:08)
[2023-03-17] MEDS ORDERED: SUVOREXANT 5 MG TABLET PO PRN (22:00)
[2023-03-18] MEDS: methaDONE 40 MG, methaDONE 20 MG PO SCH (07:17)
[2023-03-18] MEDS: GABAPENTIN 300 MG CAPSULE PO SCH (10:00)
[2023-03-18] MEDS: PRENATAL VITAMINS W/ FOLIC ACID TABLET (FP) PO SCH (10:00)
[2023-03-18] MEDS: amLODIPine BESYLATE 10 MG TABLET (FP) PO SCH (10:01)
[2023-03-18] MEDS: OLANZapine 5 MG TABLET PO SCH (21:19)
[2023-03-18] MEDS: MELATONIN 5 MG TABLETS PO SCH (21:19)
[2023-03-18] MEDS: THIAMINE HCL 100 MG TABLET (FP) PO SCH (21:19)
[2023-03-19] MEDS: methaDONE 40 MG, methaDONE 20 MG PO SCH (05:56)
[2023-03-19] MEDS: GABAPENTIN 300 MG CAPSULE PO SCH (09:56)
[2023-03-19] MEDS: amLODIPine BESYLATE 10 MG TABLET (FP) PO SCH (09:56)
[2023-03-19] MEDS: PRENATAL VITAMINS W/ FOLIC ACID TABLET (FP) PO SCH (09:56)
[2023-03-19] MEDS: THIAMINE HCL 100 MG TABLET (FP) PO SCH (21:02)
[2023-03-19] MEDS: MELATONIN 5 MG TABLETS PO SCH (21:02)
[2023-03-19] MEDS: OLANZapine 5 MG TABLET PO SCH (21:02)
[2023-03-19] MEDS ORDERED: SUVOREXANT 5 MG TABLET PO PRN (22:00)
[2023-03-20] MEDS ORDERED: methaDONE HCL 10 MG TABLET PO SCH (06:00)
[2023-03-20] MEDS ORDERED: methaDONE 40 MG, methaDONE 20 MG PO SCH (06:00)
[2023-03-20] MEDS: methaDONE 40 MG, methaDONE 20 MG PO SCH (06:08)
[2023-03-20] MEDS: PRENATAL VITAMINS W/ FOLIC ACID TABLET (FP) PO SCH (09:44)
[2023-03-20] MEDS: amLODIPine BESYLATE 10 MG TABLET (FP) PO SCH (09:45)
[2023-03-20] MEDS: GABAPENTIN 300 MG CAPSULE PO SCH (09:45)
[2023-03-20] MEDS: MELATONIN 5 MG TABLETS PO SCH (21:20)
[2023-03-20] MEDS: THIAMINE HCL 100 MG TABLET (FP) PO SCH (21:20)
[2023-03-20] MEDS: OLANZapine 5 MG TABLET PO SCH (21:21)
[2023-03-21] MEDS: methaDONE 40 MG, methaDONE 20 MG PO SCH (06:15)
[2023-03-21] MEDS: amLODIPine BESYLATE 10 MG TABLET (FP) PO SCH (10:11)
[2023-03-21] MEDS: PRENATAL VITAMINS W/ FOLIC ACID TABLET (FP) PO SCH (10:11)
[2023-03-21] MEDS: GABAPENTIN 300 MG CAPSULE PO SCH (10:11)
[2023-03-21] MEDS: MELATONIN 5 MG TABLETS PO SCH (22:55)
[2023-03-21] MEDS: THIAMINE HCL 100 MG TABLET (FP) PO SCH (22:55)
[2023-03-21] MEDS: OLANZapine 5 MG TABLET PO SCH (22:55)
[2023-03-22] MEDS: methaDONE 40 MG, methaDONE 20 MG PO SCH (06:02)
[2023-03-22] MEDS: amLODIPine BESYLATE 10 MG TABLET (FP) PO SCH (09:36)
[2023-03-22] MEDS: PRENATAL VITAMINS W/ FOLIC ACID TABLET (FP) PO SCH (09:36)
[2023-03-22] MEDS: GABAPENTIN 300 MG CAPSULE PO SCH (09:36)
[2023-03-22] MEDS: OLANZapine 5 MG TABLET PO SCH (21:21)
[2023-03-22] MEDS: THIAMINE HCL 100 MG TABLET (FP) PO SCH (21:21)
[2023-03-22] MEDS: MELATONIN 5 MG TABLETS PO SCH (21:21)
[2023-03-23] MEDS: methaDONE 40 MG, methaDONE 20 MG PO SCH (05:59)
[2023-03-23] MEDS: amLODIPine BESYLATE 10 MG TABLET (FP) PO SCH (10:11)
[2023-03-23] MEDS: GABAPENTIN 300 MG CAPSULE PO SCH (10:11)
[2023-03-23] MEDS: PRENATAL VITAMINS W/ FOLIC ACID TABLET (FP) PO SCH (10:11)
[2023-03-23] MEDS: THIAMINE HCL 100 MG TABLET (FP) PO SCH (21:30)
[2023-03-23] MEDS: MELATONIN 5 MG TABLETS PO SCH (21:30)
[2023-03-23] MEDS: OLANZapine 5 MG TABLET PO SCH (21:30)
[2023-03-24] MEDS: methaDONE 40 MG, methaDONE 20 MG PO SCH (06:05)
[2023-03-24] MEDS: GABAPENTIN 300 MG CAPSULE PO SCH (09:33)
[2023-03-24] MEDS: PRENATAL VITAMINS W/ FOLIC ACID TABLET (FP) PO SCH (09:33)
[2023-03-24] MEDS: amLODIPine BESYLATE 10 MG TABLET (FP) PO SCH (09:33)
[2023-03-24] MEDS: MELATONIN 5 MG TABLETS PO SCH (21:19)
[2023-03-24] MEDS: THIAMINE HCL 100 MG TABLET (FP) PO SCH (21:19)
[2023-03-24] MEDS: OLANZapine 5 MG TABLET PO SCH (21:19)
[2023-03-25] MEDS: methaDONE 40 MG, methaDONE 20 MG PO SCH (05:48)
[2023-03-25] MEDS: GABAPENTIN 300 MG CAPSULE PO SCH (10:06)
[2023-03-25] MEDS: amLODIPine BESYLATE 10 MG TABLET (FP) PO SCH (10:06)
[2023-03-25] MEDS: PRENATAL VITAMINS W/ FOLIC ACID TABLET (FP) PO SCH (10:06)
[2023-03-25] MEDS: MELATONIN 5 MG TABLETS PO SCH (21:36)
[2023-03-25] MEDS: THIAMINE HCL 100 MG TABLET (FP) PO SCH (21:36)
[2023-03-25] MEDS: OLANZapine 5 MG TABLET PO SCH (21:36)
[2023-03-26] MEDS: methaDONE 40 MG, methaDONE 20 MG PO SCH (06:28)
[2023-03-26] MEDS: amLODIPine BESYLATE 10 MG TABLET (FP) PO SCH (09:34)
[2023-03-26] MEDS: PRENATAL VITAMINS W/ FOLIC ACID TABLET (FP) PO SCH (09:34)
[2023-03-26] MEDS: GABAPENTIN 300 MG CAPSULE PO SCH (09:34)
[2023-03-26] MEDS: MELATONIN 5 MG TABLETS PO SCH (21:38)
[2023-03-26] MEDS: THIAMINE HCL 100 MG TABLET (FP) PO SCH (21:38)
[2023-03-26] MEDS: OLANZapine 5 MG TABLET PO SCH (21:38)
[2023-03-27] MEDS: methaDONE 40 MG, methaDONE 20 MG PO SCH (06:09)
[2023-03-27] MEDS: amLODIPine BESYLATE 10 MG TABLET (FP) PO SCH (10:08)
[2023-03-27] MEDS: PRENATAL VITAMINS W/ FOLIC ACID TABLET (FP) PO SCH (10:08)
[2023-03-27] MEDS: GABAPENTIN 300 MG CAPSULE PO SCH (10:08)
[2023-03-27] MEDS: ALBUTEROL SO4 HFA INHALER IH PRN (10:29)
[2023-03-27] MEDS: IBUPROFEN 600 MG TABLET (FP) PO PRN (14:06)
[2023-03-27] MEDS: OLANZapine 5 MG TABLET PO SCH (21:01)
[2023-03-27] MEDS: MELATONIN 5 MG TABLETS PO SCH (21:01)
[2023-03-27] MEDS: THIAMINE HCL 100 MG TABLET (FP) PO SCH (21:01)
[2023-03-27] MEDS: BUDESONIDE/FORMETEROL FUMARATE 160/4.5 mcg INHALER IH SCH (21:02)
[2023-03-28] MEDS: methaDONE 40 MG, methaDONE 20 MG PO SCH (06:20)
[2023-03-28] MEDS: PRENATAL VITAMINS W/ FOLIC ACID TABLET (FP) PO SCH (09:37)
[2023-03-28] MEDS: GABAPENTIN 300 MG CAPSULE PO SCH (09:37)
[2023-03-28] MEDS: amLODIPine BESYLATE 10 MG TABLET (FP) PO SCH (09:37)
[2023-03-28] MEDS: BUDESONIDE/FORMETEROL FUMARATE 160/4.5 mcg INHALER IH SCH ×2 (09:38→21:42)
[2023-03-28] MEDS: ALBUTEROL SO4 HFA INHALER IH PRN ×2 (09:38→21:42)
[2023-03-28 13:13] LABS: INR 1.2 (0.83-1.09); PROTHROMBIN TIME (PATIENT) 13.9 SEC (9.7-13.0)
[2023-03-28 13:34] LABS: CHOLESTEROL 140 mg/dL (50-200)
[2023-03-28 13:36] LABS: LDL CHOLESTEROL (ONLY SJRH) 83 mg/dL (5-100)
[2023-03-28 13:37] LABS: HDL CHOLESTEROL 50 mg/dL (40-60)
[2023-03-28] MEDS: LACTULOSE 20 GM/30 ML UDC (FOR ORAL USE ONLY) PO SCH ×2 (16:04→21:41)
[2023-03-28] MEDS: THIAMINE HCL 100 MG TABLET (FP) PO SCH (21:41)
[2023-03-28] MEDS: MELATONIN 5 MG TABLETS PO SCH (21:42)
[2023-03-28] MEDS: OLANZapine 5 MG TABLET PO SCH (21:42)
[2023-03-29] MEDS: methaDONE 40 MG, methaDONE 20 MG PO SCH (06:00)
[2023-03-29] MEDS: LACTULOSE 20 GM/30 ML UDC (FOR ORAL USE ONLY) PO SCH ×3 (06:00→21:07)
[2023-03-29] MEDS: BUDESONIDE/FORMETEROL FUMARATE 160/4.5 mcg INHALER IH SCH ×2 (10:28→21:07)
[2023-03-29] MEDS: ALBUTEROL SO4 HFA INHALER IH PRN (10:28)
[2023-03-29] MEDS: GABAPENTIN 300 MG CAPSULE PO SCH (10:29)
[2023-03-29] MEDS: IBUPROFEN 600 MG TABLET (FP) PO PRN (10:29)
[2023-03-29] MEDS: amLODIPine BESYLATE 10 MG TABLET (FP) PO SCH (10:29)
[2023-03-29] MEDS: PRENATAL VITAMINS W/ FOLIC ACID TABLET (FP) PO SCH (10:30)
[2023-03-29] MEDS: MELATONIN 5 MG TABLETS PO SCH (21:07)
[2023-03-29] MEDS: OLANZapine 5 MG TABLET PO SCH (21:07)
[2023-03-29] MEDS: THIAMINE HCL 100 MG TABLET (FP) PO SCH (21:07)
[2023-03-30] MEDS: methaDONE 40 MG, methaDONE 20 MG PO SCH (06:37)
[2023-03-30] MEDS: LACTULOSE 20 GM/30 ML UDC (FOR ORAL USE ONLY) PO SCH ×3 (06:37→21:27)
[2023-03-30] MEDS: BUDESONIDE/FORMETEROL FUMARATE 160/4.5 mcg INHALER IH SCH ×2 (09:37→21:26)
[2023-03-30] MEDS: amLODIPine BESYLATE 10 MG TABLET (FP) PO SCH (09:37)
[2023-03-30] MEDS: ALBUTEROL SO4 HFA INHALER IH PRN (09:37)
[2023-03-30] MEDS: IBUPROFEN 600 MG TABLET (FP) PO PRN (09:37)
[2023-03-30] MEDS: GABAPENTIN 300 MG CAPSULE PO SCH (09:37)
[2023-03-30] MEDS: PRENATAL VITAMINS W/ FOLIC ACID TABLET (FP) PO SCH (09:37)
[2023-03-30] MEDS ORDERED: ALBUTEROL SO4 0.083% IH SOL 2.5 MG/3 ML VIAL.NEB. NEB PRN (15:45)
[2023-03-30] MEDS: MELATONIN 5 MG TABLETS PO SCH (21:26)
[2023-03-30] MEDS: OLANZapine 5 MG TABLET PO SCH (21:26)
[2023-03-30] MEDS: THIAMINE HCL 100 MG TABLET (FP) PO SCH (21:26)
[2023-03-31] MEDS: methaDONE 40 MG, methaDONE 20 MG PO SCH (06:26)
[2023-03-31] MEDS: LACTULOSE 20 GM/30 ML UDC (FOR ORAL USE ONLY) PO SCH ×3 (06:26→21:08)
[2023-03-31] MEDS: amLODIPine BESYLATE 10 MG TABLET (FP) PO SCH (09:56)
[2023-03-31] MEDS: ALBUTEROL SO4 HFA INHALER IH PRN (09:56)
[2023-03-31] MEDS: GABAPENTIN 300 MG CAPSULE PO SCH (09:56)
[2023-03-31] MEDS: BUDESONIDE/FORMETEROL FUMARATE 160/4.5 mcg INHALER IH SCH ×2 (09:56→21:08)
[2023-03-31] MEDS: PRENATAL VITAMINS W/ FOLIC ACID TABLET (FP) PO SCH (09:56)
[2023-03-31] MEDS: THIAMINE HCL 100 MG TABLET (FP) PO SCH (21:08)
[2023-03-31] MEDS: MELATONIN 5 MG TABLETS PO SCH (21:08)
[2023-03-31] MEDS: OLANZapine 5 MG TABLET PO SCH (21:08)
[2023-04-01] MEDS: methaDONE 40 MG, methaDONE 20 MG PO SCH (06:02)
[2023-04-01] MEDS: LACTULOSE 20 GM/30 ML UDC (FOR ORAL USE ONLY) PO SCH ×3 (06:02→21:26)
[2023-04-01] MEDS: PRENATAL VITAMINS W/ FOLIC ACID TABLET (FP) PO SCH (10:20)
[2023-04-01] MEDS: GABAPENTIN 300 MG CAPSULE PO SCH (10:20)
[2023-04-01] MEDS: amLODIPine BESYLATE 10 MG TABLET (FP) PO SCH (10:20)
[2023-04-01] MEDS: BUDESONIDE/FORMETEROL FUMARATE 160/4.5 mcg INHALER IH SCH (10:21)
[2023-04-01] MEDS: OLANZapine 5 MG TABLET PO SCH (21:26)
[2023-04-01] MEDS: MELATONIN 5 MG TABLETS PO SCH (21:26)
[2023-04-01] MEDS: THIAMINE HCL 100 MG TABLET (FP) PO SCH (21:26)
[2023-04-02] MEDS: LACTULOSE 20 GM/30 ML UDC (FOR ORAL USE ONLY) PO SCH ×4 (06:28→21:46)
[2023-04-02] MEDS: methaDONE 40 MG, methaDONE 20 MG PO SCH (06:28)
[2023-04-02] MEDS: GABAPENTIN 300 MG CAPSULE PO SCH (10:13)
[2023-04-02] MEDS: amLODIPine BESYLATE 10 MG TABLET (FP) PO SCH (10:13)
[2023-04-02] MEDS: PRENATAL VITAMINS W/ FOLIC ACID TABLET (FP) PO SCH (10:13)
[2023-04-02] MEDS: THIAMINE HCL 100 MG TABLET (FP) PO SCH ×2 (21:35→21:46)
[2023-04-02] MEDS: OLANZapine 5 MG TABLET PO SCH ×2 (21:35→21:46)
[2023-04-02] MEDS: MELATONIN 5 MG TABLETS PO SCH ×2 (21:35→21:48)
[2023-04-03] MEDS: methaDONE 40 MG, methaDONE 20 MG PO SCH (06:21)
[2023-04-03] MEDS: LACTULOSE 20 GM/30 ML UDC (FOR ORAL USE ONLY) PO SCH ×3 (06:21→21:17)
[2023-04-03] MEDS: amLODIPine BESYLATE 10 MG TABLET (FP) PO SCH (09:35)
[2023-04-03] MEDS: GABAPENTIN 300 MG CAPSULE PO SCH (09:35)
[2023-04-03] MEDS: PRENATAL VITAMINS W/ FOLIC ACID TABLET (FP) PO SCH (09:35)
[2023-04-03] MEDS: CHOLECALCIFEROL (VIT D3) 400 UNIT (10 MCG) TABLET PO SCH (09:36)
[2023-04-03] MEDS: MELATONIN 5 MG TABLETS PO SCH (21:17)
[2023-04-03] MEDS: OLANZapine 5 MG TABLET PO SCH (21:17)
[2023-04-03] MEDS: THIAMINE HCL 100 MG TABLET (FP) PO SCH (21:17)
[2023-04-04] MEDS: methaDONE 40 MG, methaDONE 20 MG PO SCH (06:09)
[2023-04-04] MEDS: LACTULOSE 20 GM/30 ML UDC (FOR ORAL USE ONLY) PO SCH ×3 (06:09→21:18)
[2023-04-04] MEDS: PRENATAL VITAMINS W/ FOLIC ACID TABLET (FP) PO SCH (09:54)
[2023-04-04] MEDS: amLODIPine BESYLATE 10 MG TABLET (FP) PO SCH (09:54)
[2023-04-04] MEDS: GABAPENTIN 300 MG CAPSULE PO SCH (09:54)
[2023-04-04] MEDS: CHOLECALCIFEROL (VIT D3) 400 UNIT (10 MCG) TABLET PO SCH (10:44)
[2023-04-04] MEDS: OLANZapine 5 MG TABLET PO SCH (21:18)
[2023-04-04] MEDS: THIAMINE HCL 100 MG TABLET (FP) PO SCH (21:18)
[2023-04-04] MEDS: MELATONIN 5 MG TABLETS PO SCH (21:19)
[2023-04-04] MEDS: ALBUTEROL SO4 HFA INHALER IH PRN (21:19)
[2023-04-05] MEDS: LACTULOSE 20 GM/30 ML UDC (FOR ORAL USE ONLY) PO SCH ×3 (06:03→21:11)
[2023-04-05] MEDS: methaDONE 40 MG, methaDONE 20 MG PO SCH (06:03)
[2023-04-05] MEDS ORDERED: ALBUTEROL SO4 HFA INHALER IH PRN (09:01)
[2023-04-05] MEDS: BUDESONIDE/FORMETEROL FUMARATE 160/4.5 mcg INHALER IH SCH ×2 (09:39→21:12)
[2023-04-05] MEDS: CHOLECALCIFEROL (VIT D3) 400 UNIT (10 MCG) TABLET PO SCH (09:40)
[2023-04-05] MEDS: GABAPENTIN 300 MG CAPSULE PO SCH (09:40)
[2023-04-05] MEDS: amLODIPine BESYLATE 10 MG TABLET (FP) PO SCH (09:40)
[2023-04-05] MEDS: PRENATAL VITAMINS W/ FOLIC ACID TABLET (FP) PO SCH (09:40)
[2023-04-05] MEDS: THIAMINE HCL 100 MG TABLET (FP) PO SCH (21:11)
[2023-04-05] MEDS: MELATONIN 5 MG TABLETS PO SCH (21:11)
[2023-04-05] MEDS: OLANZapine 5 MG TABLET PO SCH (21:11)
[2023-04-06] MEDS: LACTULOSE 20 GM/30 ML UDC (FOR ORAL USE ONLY) PO SCH ×3 (06:08→21:13)
[2023-04-06] MEDS: methaDONE 40 MG, methaDONE 20 MG PO SCH (06:09)
[2023-04-06] MEDS: amLODIPine BESYLATE 10 MG TABLET (FP) PO SCH (09:55)
[2023-04-06] MEDS: CHOLECALCIFEROL (VIT D3) 400 UNIT (10 MCG) TABLET PO SCH (09:55)
[2023-04-06] MEDS: GABAPENTIN 300 MG CAPSULE PO SCH (09:55)
[2023-04-06] MEDS: PRENATAL VITAMINS W/ FOLIC ACID TABLET (FP) PO SCH (09:55)
[2023-04-06] MEDS: BUDESONIDE/FORMETEROL FUMARATE 160/4.5 mcg INHALER IH SCH ×2 (09:55→21:12)
[2023-04-06] MEDS: IBUPROFEN 600 MG TABLET (FP) PO PRN (13:03)
[2023-04-06] MEDS ORDERED: methaDONE HCL 10 MG TABLET PO ONE (13:46)
[2023-04-06] MEDS: BACLOFEN 10 MG TABLET (FP) PO SCH ×2 (14:29→21:13)
[2023-04-06] MEDS: TOLNAFTATE 1% CREAM 15 GM TUBE TP SCH ×2 (14:30→21:14)
[2023-04-06] MEDS: ALBUTEROL SO4 HFA INHALER IH PRN (14:30)
[2023-04-06] MEDS: MELATONIN 5 MG TABLETS PO SCH (21:12)
[2023-04-06] MEDS: THIAMINE HCL 100 MG TABLET (FP) PO SCH (21:12)
[2023-04-06] MEDS: OLANZapine 5 MG TABLET PO SCH (21:13)
[2023-04-07] MEDS ORDERED: methaDONE HCL 40 MG DISPERSABLE TABLET PO SCH (06:00)
[2023-04-07] MEDS ORDERED: methaDONE 40 MG, methaDONE 30 MG PO SCH (06:00)
[2023-04-07] MEDS: LACTULOSE 20 GM/30 ML UDC (FOR ORAL USE ONLY) PO SCH ×2 (06:04→13:13)
[2023-04-07] MEDS: BACLOFEN 10 MG TABLET (FP) PO SCH ×2 (06:05→13:13)
[2023-04-07 07:38] VITALS: TEMP 97.3
[2023-04-07 09:34] VITALS: BP 119/84; PULSE 66; RESP 16
[2023-04-07] MEDS: GABAPENTIN 300 MG CAPSULE PO SCH (09:38)
[2023-04-07] MEDS: PRENATAL VITAMINS W/ FOLIC ACID TABLET (FP) PO SCH (09:38)
[2023-04-07] MEDS: CHOLECALCIFEROL (VIT D3) 400 UNIT (10 MCG) TABLET PO SCH (09:39)
[2023-04-07] MEDS: amLODIPine BESYLATE 10 MG TABLET (FP) PO SCH (09:39)
[2023-04-07] MEDS: TOLNAFTATE 1% CREAM 15 GM TUBE TP SCH (09:39)
[2023-04-07] MEDS: BUDESONIDE/FORMETEROL FUMARATE 160/4.5 mcg INHALER IH SCH (09:39)
== END 2023-04-07 13:15 | disposition home or self-care (01) | DRG 772 ==
LOC: YASAS 14:59 → Y3W 20:22
PROVIDERS: ADMIT Allergy & Immunology; ATTEND Psychiatry & Neurology Pain Medicine
PROC: HZ42ZZZ Group Counseling for Substance Abuse Treatment, Cognitive-Behavioral (ICD-10-PCS; principal; 2023-03-16)
DX: F11.20 Opioid dependence, uncomplicated (principal); F10.20 Alcohol dependence, uncomplicated; F14.20 Cocaine dependence, uncomplicated; F31.9 Bipolar disorder, unspecified; F19.24 Other psychoactive substance dependence with psychoactive substance-induced mood disorder; F41.9 Anxiety disorder, unspecified; I10 Essential (primary) hypertension; J45.909 Unspecified asthma, uncomplicated; E72.20 Disorder of urea cycle metabolism, unspecified; E55.9 Vitamin D deficiency, unspecified; B35.3 Tinea pedis; D68.8 Other specified coagulation defects; Z91.89 Other specified personal risk factors, not elsewhere classified; Z87.891 Personal history of nicotine dependence; Z59.01 Sheltered homelessness; Z88.0 Allergy status to penicillin; Z88.8 Allergy status to other drugs, medicaments and biological substances
CPT/HCPCS: 0241U-QW; 36415; 80053; 80061; 80307; 82140; 82652; 82962; 83036; 83735; 85027; 85610; 86780; 87635; 93005; 93010; J0475

== ENCOUNTER 2024-01-12 13:22 | Inpatient (IN) | payer OTHER ==
[2024-01-12 13:44] VITALS: BMI 24.4
[2024-01-12] MEDS ORDERED: BENZONATATE 200 MG CAPSULE PO PRN (14:56)
[2024-01-12] MEDS ORDERED: guaiFENesin 600 MG TABLET.ER (FP) PO PRN (14:56)
[2024-01-12] MEDS ORDERED: hydrOXYzine PAMOATE 25 MG CAPSULE (FP) PO PRN (14:56)
[2024-01-12] MEDS ORDERED: NALOXONE (NARCAN) HCL 4 MG/0.1 ML SPRAY NS PRN (14:56)
[2024-01-12] MEDS ORDERED: MAGNESIUM HYDROX 2400MG/30ML ORAL SUSPENSION 30 ML CUP PO PRN (14:56)
[2024-01-12] MEDS ORDERED: LOPERAMIDE HCL 2 MG CAPSULE PO PRN (14:56)
[2024-01-12] MEDS ORDERED: POLYETHYLENE GLYCOL (HEALTHYLAX) 3350 17 GM PACKET PO PRN (14:56)
[2024-01-12] MEDS ORDERED: IBUPROFEN 400 MG TABLET (FP) PO PRN (14:56)
[2024-01-12] MEDS ORDERED: BENZOCAINE/MENTHOL (CHLORASEPTIC ) LOZENGE MM PRN (14:56)
[2024-01-12] MEDS ORDERED: NALOXONE (NYS OPIOID OVERDOSE PROGRAM) 4 MG/0.1 ML SPRAY NS PRN (14:56)
[2024-01-12] MEDS: PRENATAL VITAMINS W/ FOLIC ACID TABLET (FP) PO SCH (17:02)
[2024-01-12] MEDS: THIAMINE 100 MG TABLET PO SCH (21:55)
[2024-01-12] MEDS: MELATONIN 5 MG TABLETS PO SCH (21:55)
[2024-01-13] MEDS: methaDONE HCL 40 MG DISPERSABLE TABLET PO SCH (07:34)
[2024-01-13] MEDS: cloNIDine HCL 0.1 MG TABLET PO ONE (08:00)
[2024-01-13 11:20] LABS: HEMATOCRIT 38.4 % (35.4-49); HEMOGLOBIN 12.7 GM/dL (11.7-16.9); MCH 28.4 pg (25.7-33.7); MEAN PLT VOLUME 9.7 fl (7.5-11.1); PLATELET COUNT 143 10^3/uL (134-434); RBC 4.46 M/mm3 (4.00-5.60); RDW 14.3 % (11.9-15.9); WHITE BLOOD COUNT 4.6 K/mm3 (4.0-10.0)
[2024-01-13] MEDS: FLU VACCINE (FLULAVAL) PF 45 MCG/0.5 ML SYRINGE 2024-2025 IM ONE (12:00)
[2024-01-13 12:35] LABS: SYPHILIS W/ RPR CONF NON-REACTIVE (NONREACTIVE)
[2024-01-13 13:29] LABS: HIV INTERPRETATION NEGATIVE (NEGATIVE)
[2024-01-13 13:44] LABS: POTASSIUM 4.1 mmol/L (3.5-5.1)
[2024-01-13 13:48] LABS: ALBUMIN 3.1 g/dl (3.4-5.0); BLOOD UREA NITROGEN 15.5 mg/dL (7-18); CALCIUM 8.2 mg/dL (8.5-10.1)
[2024-01-13 13:52] LABS: BILIRUBIN,TOTAL 0.3 mg/dL (0.2-1); TOT PROT 6.2 g/dl (6.4-8.2)
[2024-01-13 13:58] LABS: CREATININE 0.8 mg/dL (0.55-1.3)
[2024-01-13] MEDS: BACLOFEN 10 MG TABLET (FP) PO SCH (22:10)
[2024-01-13] MEDS: OLANZapine 5 MG TABLET PO SCH (22:10)
[2024-01-13] MEDS: IBUPROFEN 600 MG TABLET (FP) PO PRN (22:14)
[2024-01-14 00:53] LABS: URINE APPEARANCE CLEAR; URINE BILIRUBIN NEGATIVE (NEGATIVE); URINE COLOR YELLOW; URINE GLUCOSE (UA) NEGATIVE (NEGATIVE); URINE KETONE NEGATIVE (NEGATIVE); URINE LEUK ESTERASE NEGATIVE (NEGATIVE); URINE NITRITE NEGATIVE (NEGATIVE); URINE PROTEIN NEGATIVE (NEGATIVE); URINE UROBILINOGEN 0.2 mg/dL (0.2-1.0)
[2024-01-15] MEDS ORDERED: ALBUTEROL SO4 HFA INHALER IH PRN (08:23)
[2024-01-15] MEDS: amLODIPine BESYLATE 10 MG TABLET (FP) PO SCH (09:59)
[2024-01-15] MEDS: FLU VACCINE (FLULAVAL) PF 45 MCG/0.5 ML SYRINGE 2024-2025 IM ONE (15:26)
[2024-01-20] MEDS: methaDONE HCL 40 MG DISPERSABLE TABLET PO SCH (05:42)
[2024-01-20] MEDS: MAG HYDROX/AL HYDROX/SIMETH 30 ML UNIT-DOSE CUP PO PRN (19:40)
[2024-01-23] MEDS: methaDONE HCL 40 MG DISPERSABLE TABLET PO ONE (07:03)
[2024-01-24] MEDS: ESCITALOPRAM OXALATE 10 MG TABLET PO SCH (12:20)
[2024-01-24] MEDS: hydrOXYzine PAMOATE 25 MG CAPSULE (FP) PO PRN (12:20)
[2024-01-24] MEDS: ACETAMINOPHEN 325 MG TABLET (FP) PO PRN (17:51)
[2024-01-30] MEDS ORDERED: hydrOXYzine PAMOATE 25 MG CAPSULE (FP) PO PRN (14:44)
[2024-01-30] MEDS ORDERED: guaiFENesin 600 MG TABLET.ER (FP) PO PRN (14:44)
[2024-01-30] MEDS ORDERED: DICYCLOMINE HCL 10 MG CAPSULE PO PRN (14:44)
[2024-01-30] MEDS ORDERED: ONDANSETRON *ODT* 4 MG TABLET SL PRN (14:44)
[2024-01-30] MEDS ORDERED: METHOCARBAMOL 500 MG TABLET PO PRN (14:44)
[2024-01-30] MEDS ORDERED: BISMUTH SUBSALICYLATE 262 MG/15 ML BTL PO PRN (14:44)
[2024-01-30] MEDS ORDERED: BENZONATATE 200 MG CAPSULE PO PRN (14:44)
[2024-01-30] MEDS: TOPIRAMATE 25 MG TABLET PO SCH (15:23)
[2024-02-01] MEDS: METHYL SALICYLATE/MENTHOL 30 GM TUBE TP SCH (14:43)
[2024-02-01] MEDS ORDERED: METHYL SALICYLATE/MENTHOL 30 GM TUBE TP SCH (22:00)
[2024-02-04 06:36] VITALS: RESP 16
[2024-02-05 07:04] VITALS: TEMP 97.1
[2024-02-05 09:23] VITALS: BP 144/78; PULSE 61
== END 2024-02-05 13:55 | disposition home or self-care (01) | DRG 772 ==
LOC: YASAS 13:22 → Y3E 15:45
PROVIDERS: ADMIT Psychiatry & Neurology Pain Medicine; ATTEND Psychiatry & Neurology Pain Medicine
PROC: HZ42ZZZ Group Counseling for Substance Abuse Treatment, Cognitive-Behavioral (ICD-10-PCS; principal; 2024-01-12)
DX: F11.20 Opioid dependence, uncomplicated (principal); F10.20 Alcohol dependence, uncomplicated; F14.20 Cocaine dependence, uncomplicated; F17.210 Nicotine dependence, cigarettes, uncomplicated; F19.282 Other psychoactive substance dependence with psychoactive substance-induced sleep disorder; F19.24 Other psychoactive substance dependence with psychoactive substance-induced mood disorder; F31.9 Bipolar disorder, unspecified; F43.10 Post-traumatic stress disorder, unspecified; I10 Essential (primary) hypertension; J45.990 Exercise induced bronchospasm; M25.511 Pain in right shoulder; Z86.19 Personal history of other infectious and parasitic diseases; Z88.8 Allergy status to other drugs, medicaments and biological substances
CPT/HCPCS: 36415; 80053; 80305; 80307; 81003; 82140; 85027; 86780; 86803; 87389; 87522; 87811; 90656; 93005; 93010; G0008; J0475